=== PATIENT | male | born 1995 | race American Indian/Alaskan Native ===

== ENCOUNTER 2016-12-20 08:12 | Emergency (ER) | payer SELFPAY ==
[2016-12-20 08:31] VITALS: BP 123/73
--- NOTE | 2016-12-20 10:49 | Emergency Department Report ---
Abscess Boil HPI - HPI Chief Complaint: Extremity Problem,Nontraumatic Stated Complaint: LEFT FINGER INFECTION Time Seen by Provider: 12/20/16 10:00 Duration: 3 Days Location: Upper Extremity (Left middle finger) History: Yes Pain (Left middle finger), Yes Previous History, No Fever, No Purulent Drainage, No Numbness, No Foreign Body, No Insect Bite ( bites his nails) HPI: She here ports that he has swelling and pain with redness at the top of his left middle finger around the nailbed. He had no trauma but admits to biting his nail. Tetanus vaccine is up-to-date. He's had similar incident in the past. Pain is 6 out of 10 and throbbing. No drainage from site. Over-the- counter pain medication without any relief. Home Medications: Previous Rx's Medication Instructions Recorded Last Taken Type Acetaminophen/Codeine [Tylenol 1 tab PO Q6H PRN #12 tab 12/20/16 Unknown Rx /Codeine # 3 tab] Ibuprofen [Motrin] 600 mg PO Q8H PRN #15 tablet 12/20/16 Unknown Rx Sulfamethoxazole/Trimethoprim 1 each PO BID #20 tablet 12/20/16 Unknown Rx [Bactrim DS TAB] Allergies/Adverse Reactions: Allergies Allergy/AdvReac Type Severity Reaction Status Date / Time No Known Allergies Allergy Unverified 12/20/16 08:31 ED Review of Systems ROS: Stated complaint: LEFT FINGER INFECTION Other details as noted in HPI Comment: All other systems reviewed and negative Constitutional: no symptoms reported Respiratory: no symptoms reported Cardiovascular: denies: chest pain, palpitations, edema, syncope Gastrointestinal: denies: nausea, vomiting Musculoskeletal: joint swelling, arthralgia Skin: other (redness and swelling to left middle finger) Neurological: denies: headache, numbness, paresthesias, confusion ED Past Medical Hx - Past Medical History Previous Medical History?: No - Surgical History Past Surgical History?: No - Family History Family history: no significant - Social History Smoking Status: Never Smoker Substance Use Type: None - Medications Home Medications: Home Medications Medication Instructions Recorded Confirmed Last Taken Type Acetaminophen/Codeine [Tylenol 1 tab PO Q6H PRN #12 tab 12/20/16 Unknown Rx /Codeine # 3 tab] Ibuprofen [Motrin] 600 mg PO Q8H PRN #15 tablet 12/20/16 Unknown Rx Sulfamethoxazole/Trimethoprim 1 each PO BID #20 tablet 12/20/16 Unknown Rx [Bactrim DS TAB] ED Abscess Boil Physical Exam - Exam General: Vital signs noted. No distress. Alert and acting appropriately. This is a 21-year-old male well-nourished well-developed in no acute distress Size: 1 cm Exam: Yes Tenderness (middle finger at distal phalanx), Yes Surrounding Cellulites/Erythema (middle finger around nailbed at distal phalanx), Yes Normal Neurologic Exam, Yes Normal Circulation, No Fluctuance (no fluctuance but positive induration), No Lymphangitis, No Crepitation, No Heart Murmur Exam: Lungs: Clear to auscultate bilaterally no rhonchi wheezes or rales. EXT: 2+pulses to all extremities. No clubbing cyanosis or edema. Neurovascular status intact. CV: S1 and S2 had a cardiac and 57 which is normal for patient. And rhythm. Psych: Normal mood and behavior. I & D Note - I & D Note I & D Note: Procedure: Unable to incident drain Ailyn cheer to left middle finger due to non-fluctuance. Area is erythema with induration and no fluctuance. Tetanus vaccine is up-to-date. She given Rocephin 600 mg IM I instructed him to apply warm compresses to left middle finger 3-4 times a day and to return to the emergency room in 3 days for reevaluation and possible incision and drainage. He will be sent home on Bactrim DS. ED Course Vital Signs 12/20/16 08:27 Temperature 98 F Pulse Rate 57 L Respiratory 14 Rate Blood Pressure 123/73 O2 Sat by Pulse 100 Oximetry - Reevaluation(s) Reevaluation #1: 12/20/16 11:39 Patient received clindamycin 600 mg IM and Ty Ty 07/3251 tablets emergency room. No adverse reaction from medication. Left middle finger to distal phalanx cleansed with normal saline and Neosporin ointment placed followed by sterile dry dressing. Critical care attestation.: If time is entered above; I have spent that time in minutes in the direct care of this critically ill patient, excluding procedure time. ED Medical Decision Making - Medical Decision Making ED course: Here reports that he has swelling, pain and redness to the top of his left middle finger. He's had similar incident in the past from nailbiting. Physical findings for paronychia left distal phalanx of middle finger, tender , swollen and erythema. Positive induration without any fluctuance. As the patient that this area is not ready to be drained due to non-fluctuance and he is to apply warm compresses 3-4 times a day to facilitate soft name and return in 3 days for reevaluation and possible incision and drainage. Voice understanding the discharge instructions and treatment plan. Denies any symptoms included tetanus is up-to-date. He was given Ty Ty 5/325 2 tablets emergency room for pain and Paronychia site cleansed with normal saline, Neosporin ointment and place a site followed by dry dressing. Condition discharge home with family with prescription for Motrin, Bactrim DS and Tylenol 3. ED Disposition Clinical Impression: Cellulitis of left middle finger, Paronychia of left middle finger, Pain of left middle finger Disposition: - TO HOME OR SELFCARE Is pt being admited?: No Does the pt Need Aspirin: No Condition: Stable Instructions: Paronychia (ED), Cellulitis (ED), Acute Wound Care (ED) Additional Instructions: Please keep affected area clean and dry Apply warm compresses to affected area 3-4 times a day to facilitate softening and draining Please return to the emergency room in 3 days for reevaluation of infected finger and possibly incision and drainage Take Bactrim DS as instructed for infection Please do not drive or operate heavy machinery while taking Tylenol No. 3 as this medication causes drowsiness Low. Primary care physician if you have Ndiaye if he does not have one he can follow-up with [facility] Prescriptions: Acetaminophen/Codeine [Tylenol /Codeine # 3 tab] 1 tab PO Q6H PRN #12 tab PRN Reason: Pain, Moderate (4-6) Ibuprofen [Motrin] 600 mg PO Q8H PRN #15 tablet PRN Reason: Pain Sulfamethoxazole/Trimethoprim [Bactrim DS TAB] 1 each PO BID #20 tablet Referrals: PRIMARY CARE, [Primary Care Provider] - 3-5 Days return to, emergency room [Other] - 12/23/16 (Return to emergency room on 2016 for reevaluation of abscess and possibly incision and drainage.) Forms: Accompanied Note, Work/School Release Form(ED)
[2016-12-20] MEDS ORDERED: NORCO 5/325 PO ONE (10:50)
[2016-12-20] MEDS ORDERED: TRIPLE ANTIBIOTIC TP ONE (10:50)
[2016-12-20] MEDS ORDERED: CLEOCIN IM ONE (10:50)
== END 2016-12-20 11:56 | disposition home or self-care (01) ==
LOC: ED 08:12
DX: L03.012 Cellulitis of left finger (principal)
CPT/HCPCS: 96372; 99282; A6250

== ENCOUNTER 2016-12-23 10:05 | Emergency (ER) | payer SELFPAY ==
[2016-12-23 11:12] VITALS: BP 127/72
--- NOTE | 2016-12-23 12:08 | XRay Report ---
LEFT FINGERS, 3 VIEWS History: Pain. Findings: There is mild nonspecific soft tissue swelling of the distal third digit. No acute osseous findings or joint pathology is appreciated. Impression: Soft tissue swelling. No evidence for osteomyelitis on x-ray.
--- NOTE | 2016-12-23 12:57 | Emergency Department Report ---
- General Chief complaint: Extremity Injury, Upper Stated complaint: FINGER PAIN Time Seen by Provider: 12/23/16 11:23 Source: patient Mode of arrival: Ambulatory Limitations: No Limitations - History of Present Illness Initial comments: This is a 21-year-old male nontoxic, well nourished in appearance, no acute signs of distress presents to the ED complaining of left middle finger and swelling x3 days. Patient stated he was here on 12/20/2016 and has been diagnosed with saline as the finger and stated that he was instructed to return if abscess develop. Patient stated he was biting his cuticles and developed this pain. Patient denies any new trauma to the region. Denies any numbness, tingling, fever, chills, nausea, vomiting, chest pain shortness of breath. Patient stated he has been taking his Bactrim that was prescribed to him. Patient denies any allergies or past medical history. He stated he is a and has up-to-date tetanus. MD complaint: abscess/boil -: Gradual, days(s) (3) Tetanus Up to Date: yes Severity: mild Severity scale (0 -10): 6 Quality: aching Consistency: constant Improves with: none Worsens with: none Context: none Associated symptoms: denies other symptoms Treatments Prior to Arrival: antibiotic - Related Data Previous Rx's Medication Instructions Recorded Last Taken Type Acetaminophen/Codeine [Tylenol 1 tab PO Q6H PRN #12 tab 12/20/16 Unknown Rx /Codeine # 3 tab] Ibuprofen [Motrin] 600 mg PO Q8H PRN #15 tablet 12/20/16 Unknown Rx Sulfamethoxazole/Trimethoprim 1 each PO BID #20 tablet 12/20/16 Unknown Rx [Bactrim DS TAB] traMADol [Ultram] 50 mg PO Q6HR PRN #12 tablet 12/23/16 Unknown Rx Allergies Allergy/AdvReac Type Severity Reaction Status Date / Time No Known Allergies Allergy Unverified 12/20/16 08:31 Abscess Boil HPI - HPI Chief Complaint: Extremity Injury, Upper Stated Complaint: FINGER PAIN Time Seen by Provider: 12/23/16 11:23 Home Medications: Previous Rx's Medication Instructions Recorded Last Taken Type Acetaminophen/Codeine [Tylenol 1 tab PO Q6H PRN #12 tab 12/20/16 Unknown Rx /Codeine # 3 tab] Ibuprofen [Motrin] 600 mg PO Q8H PRN #15 tablet 12/20/16 Unknown Rx Sulfamethoxazole/Trimethoprim 1 each PO BID #20 tablet 12/20/16 Unknown Rx [Bactrim DS TAB] traMADol [Ultram] 50 mg PO Q6HR PRN #12 tablet 12/23/16 Unknown Rx Allergies/Adverse Reactions: Allergies Allergy/AdvReac Type Severity Reaction Status Date / Time No Known Allergies Allergy Unverified 12/20/16 08:31 ED Review of Systems ROS: Stated complaint: FINGER PAIN Other details as noted in HPI Constitutional: denies: chills, fever Eyes: denies: eye pain, eye discharge, vision change ENT: denies: ear pain, throat pain Respiratory: denies: cough, shortness of breath, wheezing Cardiovascular: denies: chest pain, palpitations Endocrine: no symptoms reported Gastrointestinal: denies: abdominal pain, nausea, diarrhea Genitourinary: denies: urgency, dysuria Musculoskeletal: denies: back pain, joint swelling, arthralgia Skin: denies: rash, lesions Neurological: denies: headache, weakness, paresthesias Psychiatric: denies: anxiety, depression Hematological/Lymphatic: denies: easy bleeding, easy bruising ED Past Medical Hx - Past Medical History Previous Medical History?: No - Surgical History Past Surgical History?: No - Social History Smoking Status: Never Smoker Substance Use Type: None - Medications Home Medications: Home Medications Medication Instructions Recorded Confirmed Last Taken Type Acetaminophen/Codeine [Tylenol 1 tab PO Q6H PRN #12 tab 12/20/16 Unknown Rx /Codeine # 3 tab] Ibuprofen [Motrin] 600 mg PO Q8H PRN #15 tablet 12/20/16 Unknown Rx Sulfamethoxazole/Trimethoprim 1 each PO BID #20 tablet 12/20/16 Unknown Rx [Bactrim DS TAB] traMADol [Ultram] 50 mg PO Q6HR PRN #12 tablet 12/23/16 Unknown Rx ED Physical Exam - General Limitations: No Limitations General appearance: alert, in no apparent distress - Head Head exam: Present: atraumatic, normocephalic - Eye Eye exam: Present: normal appearance, PERRL, EOMI. Absent: scleral icterus, conjunctival injection, nystagmus, periorbital swelling, periorbital tenderness Pupils: Present: normal accommodation - ENT ENT exam: Present: normal exam, normal orophraynx, mucous membranes moist, TM's normal bilaterally, normal external ear exam - Neck Neck exam: Present: normal inspection, full ROM. Absent: tenderness, meningismus, lymphadenopathy, thyromegaly - Respiratory Respiratory exam: Present: normal lung sounds bilaterally. Absent: respiratory distress, wheezes, rales, rhonchi, stridor, chest wall tenderness, accessory muscle use, decreased breath sounds, prolonged expiratory - Cardiovascular Cardiovascular Exam: Present: regular rate, normal rhythm, normal heart sounds. Absent: systolic murmur, diastolic murmur, rubs, gallop - GI/Abdominal GI/Abdominal exam: Present: soft, normal bowel sounds. Absent: distended, tenderness, guarding, rebound, rigid, diminished bowel sounds - Rectal Rectal exam: Present: deferred - Extremities Exam Extremities exam: Present: normal inspection, full ROM, tenderness, normal capillary refill. Absent: pedal edema, joint swelling, calf tenderness - Expanded Upper Extremity Exam Left Shoulder Exam: Present: normal inspection Upper Arm exam: Present: normal inspection, full ROM Elbow exam: Present: normal inspection, full ROM Forearm Wrist exam: Present: normal inspection, full ROM Hand Wrist exam: Present: normal inspection, full ROM, tenderness, swelling, erythema. Absent: abrasion, laceration, ecchymosis, deformity, crepidus, dislocation, amputation, nail avulsion, subungual hematoma Hand L/R Back: 1 - 1 cm abscess with positive induration or fluctuance Neuro motor exam: Present: wrist extension intact, thumb opposition intact, thumb IP flexion intact, thumb adduction intact, fingers 2-5 abduction intact Neurosensory exam: Present: 2-point discrimination, radial nerve intact, ulnar nerve intact, median nerve intact Vascular: Present: vascular compromise, normal capillary refill, radial pulse, brachial pulse, ulnar pulse - Back Exam Back exam: Present: normal inspection, full ROM. Absent: tenderness, CVA tenderness (R), CVA tenderness (L), muscle spasm, paraspinal tenderness, vertebral tenderness, rash noted - Neurological Exam Neurological exam: Present: alert, oriented X3, CN II-XII intact, normal gait, reflexes normal - Psychiatric Psychiatric exam: Present: normal affect, normal mood - Skin Skin exam: Present: warm, dry, intact, normal color. Absent: rash ED Course Vital Signs 12/23/16 11:09 Temperature 98.0 F Pulse Rate 56 L Respiratory 16 Rate Blood Pressure 127/72 O2 Sat by Pulse 100 Oximetry - Reevaluation(s) Reevaluation #1: 12/23/16 13:03 Patient is speaking in full sentences with no signs of distress noted. - I & D Left Finger Type of Procedure: Simple Site: left distal middle phalanx Blade Size: 11 I & D Procedure: betadine prep, sterile drapes applied, sterile dressing applied , gauze wick placed Progress: Under sterile field, I used Betadine to cleanse the area. I did not use any local due to after the superficial just below the skin with no soft tissue involvement. I then used an 11 blade to make a 0.5 cm incision. About 2 mL's of purulent drainage has been noted. I then used a hemostat to break the abscess formation. I then used sterile soap and water to wash the area. A sterile 4 x 4 with tape has been applied as dressing. Bleeding is under control. Patient tolerated the procedure well with no signs of distress noted. ED Medical Decision Making - Radiology Data Radiology results: report reviewed interpreted by me: Dictated by radiologist Normal examination with no signs of osteomyelitis or any abnormalities - Medical Decision Making 21-year-old male that presents with paronychia. Incision and drainage has been performed. Patient Tolerated well well with no signs of any distress. Patient was instructed to continue taking antibiotics as prescribed. Patient received triple antibiotic to the finger post I&D with sterile dressing. Acute wound care has been educated. Patient was instructed to follow-up with a primary care doctor in 3-5 days or if symptoms worsen and continue return to emergency room as soon as possible possible. At time time of discharge, the patient does not seem toxic or ill in appearance. No acute signs of distress noted. Patient agrees to discharge treatment plan of care. No further questions noted by the patient. Patient received Ultram and was educated not to operate any machinery while taking Ultram due to sedation/drowsiness. Critical care attestation.: If time is entered above; I have spent that time in minutes in the direct care of this critically ill patient, excluding procedure time. ED Disposition Clinical Impression: Paronychia, Encounter for incision and drainage procedure Disposition: TO HOME OR SELFCARE Is pt being admited?: No Does the pt Need Aspirin: No Condition: Stable Instructions: Acute Wound Care (ED), Incision and Drainage (ED), Sulfamethoxazole/Trimethoprim (By mouth), Tramadol (By mouth) Additional Instructions: Follow-up with a primary care doctor in 3-5 days or if symptoms worsen and continue return to emergency room as soon as possible possible. Continue taking Bactrim as prescribed to you on a previous visit Prescriptions: traMADol [Ultram] 50 mg PO Q6HR PRN #12 tablet PRN Reason: Pain Referrals: PRIMARY CAREMD [Primary Care Provider] - 3-5 Days CATHLEEN HESS MD [Staff Physician] - 3-5 Days [facility] [Outside] - 3-5 Days [facility] [Outside] - 3-5 Days Forms: Work/School Release Form(ED)
[2016-12-23] MEDS ORDERED: TRIPLE ANTIBIOTIC TP ONE (13:06)
== END 2016-12-23 13:29 | disposition home or self-care (01) ==
LOC: ED 10:05
DX: L03.012 Cellulitis of left finger (principal)
CPT/HCPCS: 99283

== ENCOUNTER 2017-06-17 23:30 | Emergency (ER) | payer SELFPAY ==
--- NOTE | 2017-06-18 07:58 | Emergency Department Report ---
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 A.A. male that presents with congestion for 2 days. 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 He also works outside and constantly in and out doors multiple times a day. Admits to congestion and clear rhinorrhea. He states "I'm only here for a doctor note". "I'm feeling better, just congested". Denies fever, chest pain, SOB, body aches, nausea, vomiting, and headaches. ED Review of Systems ROS: Stated complaint: COLD/DOCTOR'S NOTE Other details as noted in HPI Constitutional: denies: chills, fever ENT: congestion. denies: ear pain, throat pain Respiratory: denies: cough, shortness of breath, wheezing Cardiovascular: denies: chest pain, palpitations Gastrointestinal: denies: abdominal pain, nausea, diarrhea Neurological: denies: headache, weakness, paresthesias Psychiatric: denies: anxiety, depression ED Past Medical Hx - Past Medical History Previous Medical History?: No - Surgical History Past Surgical History?: No - Social History Smoking Status: Never Smoker Substance Use Type: None - Medications Home Medications: Home Medications Medication Instructions Recorded Confirmed Last Taken Type Acetaminophen/Codeine [Tylenol 1 tab PO Q6H PRN #12 tab 12/20/16 Unknown Rx /Codeine # 3 tab] Ibuprofen [Motrin] 600 mg PO Q8H PRN #15 tablet 12/20/16 Unknown Rx Sulfamethoxazole/Trimethoprim 1 each PO BID #20 tablet 12/20/16 Unknown Rx [Bactrim DS TAB] traMADol [Ultram] 50 mg PO Q6HR PRN #12 tablet 12/23/16 Unknown Rx Cetirizine HCl [Zyrtec] 10 mg PO DAILY #30 tablet 06/18/17 Unknown Rx Fluticasone [Flonase] 1 spray NS QDAY #1 bottle 06/18/17 Unknown Rx Minor Respiratory Exam - Exam General: Vital signs noted. No distress. Alert and acting appropriately. HEENT: Yes Pharyngeal Erythema, Yes Moist Mucous Membranes, Yes Rhinorrhea ( turbinates congseted bilaterally, clear discharge), No Pharyngeal Exudates, No Conjuctival Injection, No Frontal Tenderness, No Maxillary Tenderness Ear: Neither TM Bulge (cerumen noted bilaterally), Neither TM Erythema, Neither EAC Pain, Neither EAC Discharge Neck: Yes Supple, No Adenopathy Lungs: Yes Good Air Exchange, No Wheezes, No Ronchi, No Stridor, No Cough, No Labored Respirations, No Retractions, No Use of Accessory Muscles, No Other Abnormal Lung Sounds Heart: Yes Regular, No Murmur Abdomen: Yes Normal Bowel Sounds, No Tenderness, No Peritoneal Signs Skin: No Rash, No Edema Neurologic: Alert and oriented, no deficits. Musculoskeletal: Unremarkable. ED Course Vital Signs 06/18/17 01:40 Temperature 98.4 F Pulse Rate 64 Respiratory 18 Rate Blood Pressure 124/81 O2 Sat by Pulse 100 Oximetry ED Medical Decision Making - Medical Decision Making This is a 21 y.o. A.A. male that presents with congestion for 2 days. He admitted that he only came in for a doctor note and feeling better since symptoms started. Patient examined by me and stable. No distress noted. Vitals stable. Physical findings susceptible of allergic rhinitis. Start cetirizine 10 mg po daily and flonase 50 mcg 1 spray in each nostril daily. Discussed plan with patient to treat outpatient with patient and he agrees with plan. Discharged home. Return to work tomorrow. Follow up with primary care provider or Urgent Care in 24-72 hours. Critical care attestation.: If time is entered above; I have spent that time in minutes in the direct care of this critically ill patient, excluding procedure time. ED Disposition Clinical Impression: Allergic rhinitis Qualifiers: Allergic rhinitis trigger: unspecified Allergic rhinitis seasonality: seasonal Qualified Code(s): J30.2 - Other seasonal allergic rhinitis Disposition: - TO HOME OR SELFCARE Is pt being admited?: No Does the pt Need Aspirin: No Condition: Stable Instructions: Allergic Rhinitis (ED) Additional Instructions: Increase fluid intake and rest. Wash hands frequently. Take zyrtec daily as need for symptom relief. Symptoms should improve in the next 3-7 days. Avoid triggers such as pollen and smoke. Use nasal saline spray to help control congestion and rinse nasal cavity, to improve breathing. F/U with primary care provider or urgent care in 24-72 hours. Return to ER if fever, SOB, or difficulty breathing after 48 hours of supportive care. Prescriptions: Cetirizine HCl [Zyrtec] 10 mg PO DAILY #30 tablet Fluticasone [Flonase] 1 spray NS QDAY #1 bottle Referrals: [facility] [Outside] - 3-[address] [facility] [Outside] - 3-5 Days [facility] [Outside] - 3-5 Days Forms: Work/School Release Form(ED) Time of Disposition: 08:00 Print Language: [id number]
[2017-06-18 08:20] VITALS: BP 118/78
== END 2017-06-18 08:19 | disposition home or self-care (01) ==
LOC: ED 23:30
DX: J30.2 Other seasonal allergic rhinitis (principal)
CPT/HCPCS: 99282